=== PATIENT | female | born 1990 ===

== ENCOUNTER → 2020-09-05 | Outpatient (CLI) | payer OTHER | END | disposition home or self-care (01) | LOC: LAB 14:56 | DX: Z20.828 Contact with and (suspected) exposure to other viral communicable diseases (principal) ==

== ENCOUNTER 2020-11-30 09:22 | Outpatient (CLI) | payer OTHER | END 2020-11-30 09:33 | disposition home or self-care (01) | LOC: RX STUDY 09:22 | PROVIDERS: ATTEND Obstetrics & Gynecology Obstetrics | DX: N97.8 Female infertility of other origin (principal); N93.0 Postcoital and contact bleeding; Z01.419 Encounter for gynecological examination (general) (routine) without abnormal findings ==